=== PATIENT | female | born 1995 | race Caucasian/White ===

== ENCOUNTER 2020-08-02 12:20 | Outpatient (REF) | payer OTHER, SELFPAY | END 2020-08-02 12:21 | disposition home or self-care (01) | LOC: HO.LAB 12:20 | PROVIDERS: Visit Provider Internal Medicine | DX: Z20.828 Contact with and (suspected) exposure to other viral communicable diseases (principal) | CPT/HCPCS: 36415; C9803; U0003 ==

== ENCOUNTER 2020-11-11 15:12 | Emergency (ER) | payer OTHER, SELFPAY ==
[2020-11-11 15:42] VITALS: BP 144/84; PULSE 115; RESP 22; TEMP 37.8; O2SAT 96; BMI 31.8
--- NOTE | 2020-11-11 16:14 | ED_ITS ---
HPI - URI/Sore Throat General Chief Complaint: Upper Respiratory Symptoms Stated Complaint: covid symptoms Time Seen by Provider: 11/11/20 16:14 Source: patient Mode of arrival: ambulatory Limitations: no limitations History of Present Illness HPI Narrative: Patient been having upper respiratory symptoms for last 3 days nasal congestion cough chills history of asthma also complaining of lower abdominal pain no urinary complaint patient checked for was negative MD elicited complaint: cough and sore throat Severity: mild Related Data Previous Rx's Medication Instructions Recorded albuterol sulfate 2 puff INHALATION Q6H PRN #8.5 g 11/11/20 amoxicillin-pot clavulanate 1 tab PO BID #20 tab 11/11/20 [Augmentin] Allergies Allergy/AdvReac Type Severity Reaction Status Date / Time cat dander [CAT] Allergy Mild HIVES Unverified 04/15/20 18:51 SEAFOOD Allergy Mild HIVES Uncoded 04/15/20 18:51 Review of Systems Review of Systems: Constitutional : No Weight loss, No Fever, No Chills ENT/Mouth : + sore throat, + Rhinorrhea Eyes: No Eye Pain, No Swelling Cardiovascular : No Chest Pain, no palpitations Respiratory : +Cough, No Sputum, no shortness of breath Gastrointestinal : no Nausea, No Vomiting, No Diarrhea,+abdominal Pain, no black stools Genitourinary : No Dysuria, No Urinary Frequency Musculoskeletal : No joint pain, No Myalgias, No Joint Swelling Skin : No Skin Lesions, No rash Neuro : No Weakness, No Numbness, No Dizziness, No Headache Psych : No Anxiety/Panic, No Depression Heme/Lymph: No Bruising, No Lymphadenopathy Endocrine : No Polyuria, No Polydipsia All other systems reviewed and are negative [facility] Social History Social History Advance Directives: No Advance Directives Information Provided: No Physical Exam Vital Signs: Vital Signs: Last Vital Signs Temp 100.0 F 11/11/20 15:42 Pulse 104 H 11/11/20 16:47 Resp 20 11/11/20 16:47 BP 139/85 11/11/20 16:47 Pulse Ox 97 11/11/20 16:47 Body Mass Index 31.8 Appearance: Alert. Oriented X3. No acute distress. Eyes: Pupils equal, round and reactive to light. ENT: Pharynx normal. Neck: Normal inspection. Neck supple. CVS: Normal heart rate and rhythm. Pulses normal. Respiratory: No respiratory distress. Breath sounds normal. Abdomen: Soft and mild tenderness suprapubic area no rebound tenderness or guarding Bowel sounds are present, no mass palpable, no CVA tenderness Skin: Skin warm and dry. Normal skin color. Normal skin turgor. Extremities: No lower extremity edema. Neuro: Oriented X 3. No motor deficit. No sensory deficit. MDM - URI/Sore Throat Lab Data Attestation: I reviewed the patient's lab results. Labs: Lab Results 11/11/20 11/11/20 11/11/20 Range/Units 18:07 19:26 19:26 Urine Color YELLOW Urine Appearance CLEAR Urine pH 7.0 (5.0-8.0) Ur Specific [place] 1.015 (1.005-1.025) Urine Protein TRACE (NEG-TRACE) MG/DL Urine Glucose (UA) NEG (NEG) MG/DL Urine Ketones 5 (NEG) MG/DL Urine Blood NEG (NEG) Urine Nitrite NEG (NEG) Ur Leukocyte Esterase TRACE H (NEG) Urine RBC 0 (0) /HPF Urine WBC 0-2 (0-4) /HPF Ur Squamous Epith Cells 2+ /LPF Urine Bacteria 1+ /LPF Urine Test NEGATIVE (NEGATIVE) Coronavirus (PCR) NEGATIVE (Negative) Influenza Type A (PCR) NEGATIVE (Negative) Influenza Type B (PCR) NEGATIVE (Negative) RSV RNA Qual (PCR) NEGATIVE (Negative) Discharge Plan Discharge Clinical Impression: Acute rhinosinusitis Patient Disposition: Home, Self-Care Instructions: Rhinosinusitis (ED) Additional Instructions: Take antibiotic as advised follow-up with PCP Prescriptions: New amoxicillin-pot clavulanate [Augmentin] 875-125 mg tablet 1 tab PO BID Qty: 20 RF: 0 albuterol sulfate 90 mcg/actuation HFA aerosol inhaler 2 puff inhalation Q6H PRN (Reason: shortness of breath or wheezing) Qty: 8.5 RF: 0 Interventions: ED Discharge Assessment Last Done: 11/11/20 20:02 Discharge Date/Time: 11/11/20 19:17
[2020-11-11 16:47] VITALS: BP 139/85; PULSE 104; RESP 20; O2SAT 97
--- NOTE | 2020-11-11 16:49 | PC.NURSE ---
ambulatory to emc, vs reassessed, pt also c/o 4-12/06 RT LOWER ABDOMEN
[2020-11-11 18:56] LABS: Influenza A PCR NEGATIVE (Negative); Influenza B PCR NEGATIVE (Negative); Resp Syncy Virus RNA Qual PCR NEGATIVE (Negative); SARS COV2 PCR INHOUSE NEGATIVE (Negative)
[2020-11-11] MEDS: Amoxicillin/Potassium Clav 875 MG TABLET PO (19:24)
[2020-11-11 19:52] LABS: Glucose Urine UA NEG (NEG); Leukocyte Esterase Urine TRACE (NEG); Nitrite Urine NEG (NEG); Specific Gravity - Urine 1.015 (1.005-1.025); UACC Culture Trigger YES; Urine Blood NEG (NEG); Urine Ketones 5 MG/DL (NEG); Urine Protein TRACE MG/DL (NEG-TRACE)
[2020-11-11 19:53] LABS: Appearance Urine CLEAR; Color Urine YELLOW
[2020-11-11 19:55] LABS: UPreg QC Valid YES; Urine Pregnancy NEGATIVE (NEGATIVE)
[2020-11-11 20:01] LABS: Bacteria Urine 1+ /LPF; RBC Urine 0 /HPF (0); Squamous Epithelial Cell Urine 2+ /LPF; WBC Urine 0-2 /HPF (0-4)
== END 2020-11-11 19:17 | disposition home or self-care (01) ==
PROVIDERS: Emergency Provider Internal Medicine
DX: J01.90 Acute sinusitis, unspecified (principal); R05 Cough; Z20.822 Contact with and (suspected) exposure to COVID-19; Z79.899 Other long term (current) drug therapy
CPT/HCPCS: 0241U; 36415; 81001; 81003; 81025; 87086; 99283

== ENCOUNTER 2021-09-21 09:12 | Emergency (ER) | payer OTHER, SELFPAY ==
--- NOTE | ~2021-09-21 | US_ITS ---
EXAMINATION: US PELVIS CLINICAL INFORMATION: Abnormal vaginal bleeding. COMPARISON: None. TECHNIQUE: Ultrasound of the pelvis is performed using both transabdominal and transvaginal transducers along with Doppler. Transvaginal imaging is performed due to inadequate visualization transabdominally. FINDINGS: Uterus: The uterus is anteverted, anteflexed and measures 9.1 x 4.9 x 5.7 cm. The double wall endometrial thickness is 1.0 cm. The uterus is smooth in contour and has normal myometrial echogenicity. No visible fibroid. There are small nabothian cysts in the cervix. Adnexa: Both ovaries are visualized. There is normal color flow to the adnexa. There is no ovarian torsion. There is no pelvic ascites or fluid collection. Right ovary measures 4.9 x 2.2 x 2.06 cm and volume 11.3 mL. There are small follicular cysts seen. Left ovary measures 4.7 x 1.7 x 3.0 cm and volume 12.1 mL. There are several anechoic cysts in a string of brigette fashion appearance. There is a small amount of free fluid in the cul-de-sac. US/US pelvic and transvaginal IMPRESSION: Small Nabothian cysts. The uterus is unremarkable. Mild thickening of the endometrium measuring 1.0 cm but no focal lesion seen. Bilateral ovarian simple follicular cysts. There is a small amount of free fluid in the cul-de-sac.
[2021-09-21 09:29] VITALS: BP 146/84; PULSE 100; RESP 18; TEMP 36.7; O2SAT 96; BMI 32.8
--- NOTE | 2021-09-21 10:47 | ED_ITS ---
HPI - Female Genitourinary General Chief complaint: Vaginal Bleeding Stated complaint: Vaginal bleeding Time Seen by Provider: 09/21/21 10:29 Source: patient Mode of arrival: ambulatory Limitations: no limitations History of Present Illness HPI Narrative: Patient is a 26-year-old female G4 T3 L3, with no significant past medical history, who presents to the emergency department for evaluation of vaginal ble eding. She reports her last menstrual period was 07/01/2021. In July 2021 she took an at-home test which was positive, although she states the line was very faded. Therefore she took another test 09/04/2021 which was negative. She reports that 1.5 weeks ago she developed lower abdomina l/suprapubic pain and cramping and began having vaginal bleeding that is dark in color, odorous, with large clots. She states that she has been changing her tampon hourly, sizes Super, and tampon is completely saturated. In addition, she has been experiencing right lower back pain associated with this. She denies fevers, chills, nausea, vomiting constipation, diarrhea, dysuria, urinary frequency/urgency/hesitancy, abnormal vaginal discharge preceding vaginal bleeding, concern for sexually transmitted infection, does have a history of prior sexually transmitted infection. She is not taking any form of contraception. The date of her last Pap smear is unknown. MD elicited complaint: vaginal bleeding Pertinent past history: prior miscarriages Onset (ago): week(s) Quality of pain: cramping Vaginal bleeding: heavy, dark red and clots Associated symptoms: abdominal pain and back pain (right sided) Possible : at home test positive and at home test negative Date of Last Menstrual Period: 07/01/21 Related Data : 4 Para: 3 Total number of abortions (spontaneous and elective): 1 Previous Rx's Medication Instructions Recorded albuterol sulfate 90 mcg/actuation 2 puff INHALATION Q6H PRN #8.5 g 11/11/20 aerosol inhaler amoxicillin 875 mg-potassium 1 tab PO BID #20 tab 11/11/20 clavulanate 125 mg tablet (Augmentin) doxycycline monohydrate 100 mg 100 mg PO BID 14 Days #28 cap 09/21/21 capsule metronidazole 500 mg tablet 500 mg PO BID 14 Days #28 tab 09/21/21 Allergies Allergy/AdvReac Type Severity Reaction Status Date / Time cat dander [CAT] Allergy Mild HIVES Verified 09/21/21 09:32 SEAFOOD Allergy Mild HIVES Uncoded 04/15/20 18:51 Review of Systems Review of Systems: Constitutional : No Fever, No Chills ENT/Mouth : No sore throat, No Rhinorrhea Eyes: No Eye Pain, No Redness Cardiovascular : No Chest Pain, No SOB Respiratory : No Cough, No Sputum, No Wheezing Gastrointestinal : No Nausea, No Vomiting, No Diarrhea, positive abdominal pain, Genitourinary : positive irregular bleeding, No Dysuria, No Urinary Frequency, No pelvic pain Musculoskeletal : No Myalgias Skin : No rash Neuro : No Weakness, No Headache Psych : No Anxiety/Panic, No Depression Heme/Lymph: No bruising, No Lymphadenopathy Endocrine : No Polyuria, No Polydipsia All other systems reviewed and are negative [facility] Past Medical History Attestation statement: The following information was validated with the patient. Source: old records reviewed Medical History Asthma Miscarriage : 4 Para: 3 Total number of abortions (spontaneous and elective): 1 Date of Last Menstrual Period: 07/01/21 Social History Social History Advance Directives: No Advance Directives Information Provided: No Patient : No Physical Exam Vital Signs: Vital Signs: Last Vital Signs Temp 98.5 F 09/21/21 14:36 Pulse 81 09/21/21 14:36 Resp 16 09/21/21 14:36 BP 136/80 09/21/21 14:36 Pulse Ox 98 09/21/21 14:36 BMI result Body Mass Index 32.8 Vital signs have been reviewed and appeared to be correct. Blood pressure is elevated 146/84. Heart rate normal.? Respiration rate normal. Temperature normal.? Oxygen saturation normal. Appearance: Alert.?Oriented to person, place and time. No acute distress.?Normal affect. Eyes: Pupils equal, round and reactive to light.? ENT: Pharynx normal.?? Neck: Normal inspection.? Neck supple.?? CVS: Heart sounds normal. Normal heart rate and rhythm.? Pulses normal.?? Respiratory: No respiratory distress.? Lung sounds clear to auscultation bilaterally?? Abdomen: Soft and non-tender. Normoactive bowel sounds. No pulsatile mass.? Genitourinary:? Supervised by HALIMA Malave. Normal external appearance of urethra. No lesions/lacerations or discharge or tenderness noted.? No Bartholin cyst noted. Speculum exam: normal appearance/palpation of vagina normal. No vaginal erythema. No foreign bodies noted. No vaginal laceration/lesions. + active vaginal bleeding, no blood clots.? No vaginal mass noted.? No vaginal swelling noted.? No vaginal tenderness noted.? Normal appearance of cervix, cloudy white discharge at cervical os. Cervical os is closed.?Positive cervical motion tnederness. Uterine tenderness. Negative chandelier sign. Bladder normal to palpation. Normal adnexa. Normal rectovaginal exam. Back:? No CVA tenderness.? Full range of motion noted.? Skin: Skin warm and dry.? Normal skin color.? Normal skin turgor.?? Extremities: No lower extremity edema.? Neuro: Moves all extremities spontaneously. Sensation intact bilaterally. CN II- XII intact. No focal neuro deficits. Ambulates with normal steady gait. Course Course Course Narrative: Patient is a 26-year-old female being evaluated for abnormal vaginal bleeding. Will obtain urinalysis to exclude infection, microscopic hematuria. Will obtain hCG to evaluate for . CBC to evaluate for anemia. Transvaginal/ pelvic ultrasound. Disposition pending results. Specimen to be obtained for chlamydia and gonorrhea testing. Reevaluation(s) Reevaluation #1: Urine test negative, hcg quant negative. CBC indicates a very mild anemia with hemoglobin 11.5, hematocrit is normal at 38.9, otherwise unremarkable. BMP unremarkable. Urinalysis with hematuria, no concern for infection. There is concern for possible pelvic inflammatory disease given cervical motion tenderness, will plan to treat with ceftriaxone 500 mg IV, doxycycline 100 mg p.o. twice daily for 14 days, metronidazole 500 mg p.o. twice daily for 14 days. Ultrasound reveals small nabothian cysts, mild thickening of the endometrium measuring 1.0 cm but no focal lesions, and a small amount of free fluid in the cul-de-sac. Not consistent with ruptured ovarian cyst, ovarian torsion, foreign body, or trauma based on history. At this time will plan to discharge patient home with outpatient follow-up with medical assisting instructor, all questions were answered and patient is agreeable with plan of care. We discussed reasons to return to the emergency department. Time: 14:33 MDM - Female Genitourinary Medical Records Attestation: I reviewed the patient's medical records. Lab Data Attestation: I reviewed the patient's lab results. Result diagrams: 09/21/21 12:00 09/21/21 12:04 Labs: Lab Results 09/21/21 09/21/21 09/21/21 Range/Units 11:04 11:05 11:05 WBC (4.8-10.8) X10*3/uL RBC (4.20-5.50) X10*6/uL Hgb (12.0-16.0) g/dl Hct (37.0-47.0) % MCV (80.0-98.0) fL MCH (27.0-33.0) pg MCHC (31.0-35.0) g/dl RDW (11.0-16.0) % Plt Count (160-400) X10*3/uL MPV (9.4-12.3) fL Immature Gran % (Auto) (0.0-0.4) % Neut % (Auto) (45-73) % Lymph % (Auto) (20-40) % [place] % (Auto) (2-11) % Eos % (Auto) (0-4) % Baso % (Auto) (0-2) % Lymph # (Auto) (1.2-4.9) X10*3/uL [place] # (Auto) (0.1-1.2) X10*3/uL Eos # (Auto) (0.0-0.4) X10*3/uL Baso # (Auto) (0.0-0.2) X10*3/uL Abs Immat Gran (auto) (0.00-0.03) X10*3/uL Absolute Neuts (auto) (2.0-8.3) x10*3/uL Absolute Nucleated RBC (0.0-0.012) X10*3/uL Nucleated RBC % (auto) (0.0-0.2) /100WBC Sodium (135-145) mmol/L Potassium (3.3-5.1) mmol/L Chloride (96-108) mmol/L Carbon Dioxide (22-29) mmol/L Anion Gap (12-20) BUN (9-16) mg/dL Creatinine (0.5-1.4) mg/dL Estim Creat Clear Calc Estimated GFR Random Glucose (60-115) mg/dL Calcium (8.4-10.2) mg/dL Beta HCG, Quant mIU/mL Urine Color PINK Urine Appearance CLOUDY Urine pH 6.0 (5.0-8.0) Ur Specific [place] 1.025 (1.005-1.025) Urine Protein 1+ H (NEG-TRACE) MG/DL Urine Glucose (UA) NEG (NEG) MG/DL Urine Ketones 5 (NEG) MG/DL Urine Blood 3+ H (NEG) Urine Nitrite NEG (NEG) Ur Leukocyte Esterase NEG (NEG) Urine RBC TNTC H (0) /HPF Urine WBC 0-2 (0-4) /HPF Ur Squamous Epith Cells 1+ /LPF Calcium Oxalate Crystal 2+ /LPF Urine Bacteria NONE /LPF Urine Mucus 1+ /LPF Urine Test NEGATIVE (NEGATIVE) Chlam trachomat DNA PCR NOT DETECTED (Not Detect.) N.gonorrhoeae DNA (PCR) NOT DETECTED (Not Detect.) 09/21/21 09/21/21 Range/Units 12:00 12:04 WBC 7.8 (4.8-10.8) X10*3/uL RBC 5.38 (4.20-5.50) X10*6/uL Hgb 11.5 L (12.0-16.0) g/dl Hct 38.9 (37.0-47.0) % MCV 72.3 L (80.0-98.0) fL MCH 21.4 L (27.0-33.0) pg MCHC 29.6 L (31.0-35.0) g/dl RDW 18.3 H (11.0-16.0) % Plt Count 278 (160-400) X10*3/uL MPV 11.7 (9.4-12.3) fL Immature Gran % (Auto) 0.3 (0.0-0.4) % Neut % (Auto) 59.8 (45-73) % Lymph % (Auto) 29.0 (20-40) % [place] % (Auto) 6.3 (2-11) % Eos % (Auto) 4.2 H (0-4) % Baso % (Auto) 0.4 (0-2) % Lymph # (Auto) 2.3 (1.2-4.9) X10*3/uL [place] # (Auto) 0.5 (0.1-1.2) X10*3/uL Eos # (Auto) 0.3 (0.0-0.4) X10*3/uL Baso # (Auto) 0.0 (0.0-0.2) X10*3/uL Abs Immat Gran (auto) 0.02 (0.00-0.03) X10*3/uL Absolute Neuts (auto) 4.7 (2.0-8.3) x10*3/uL Absolute Nucleated RBC 0.000 (0.0-0.012) X10*3/uL Nucleated RBC % (auto) 0.0 (0.0-0.2) /100WBC Sodium 140 (135-145) mmol/L Potassium 4.2 (3.3-5.1) mmol/L Chloride 106 (96-108) mmol/L Carbon Dioxide 27 (22-29) mmol/L Anion Gap 11 L (12-20) BUN 8 L (9-16) mg/dL Creatinine 0.75 (0.5-1.4) mg/dL Estim Creat Clear Calc 116.6 Estimated GFR > 60 Random Glucose 88 (60-115) mg/dL Calcium 8.8 (8.4-10.2) mg/dL Beta HCG, Quant < 2 mIU/mL Urine Color Urine Appearance Urine pH (5.0-8.0) Ur Specific [place] (1.005-1.025) Urine Protein (NEG-TRACE) MG/DL Urine Glucose (UA) (NEG) MG/DL Urine Ketones (NEG) MG/DL Urine Blood (NEG) Urine Nitrite (NEG) Ur Leukocyte Esterase (NEG) Urine RBC (0) /HPF Urine WBC (0-4) /HPF Ur Squamous Epith Cells /LPF Calcium Oxalate Crystal /LPF Urine Bacteria /LPF Urine Mucus /LPF Urine Test (NEGATIVE) Chlam trachomat DNA PCR (Not Detect.) N.gonorrhoeae DNA (PCR) (Not Detect.) Imaging Data pelvic US: Radiologist's impression: IMPRESSION: Small Nabothian cysts. The uterus is unremarkable. ? Mild thickening of the endometrium measuring 1.0 cm but no focal lesion seen. ? Bilateral ovarian simple follicular cysts. ? There is a small amount of free fluid in the cul-de-sac. Discharge Plan Discharge Clinical Impression: Abnormal vaginal bleeding, Pelvic inflammatory disease Patient Disposition: Home, Self-Care Instructions: Pelvic Inflammatory Disease (ED), Dysfunctional Uterine Bleeding (ED) Additional Instructions: It is possible that you may have pelvic inflammatory disease, therefore you are being treated with doxycycline twice a day for 14 days and metronidazole twice a day for 14 days. Be sure not to consume any alcohol while taking these antibiotics. ultrasound reveals some mild thickening of your endometrial and to the lining of the uterus, this may also be a cause for your bleeding. Please contact medical assisting instructor to schedule a follow-up appointment in 1 week. You may return to the emergency department with any new or worsening symptoms or concerns. Additionally if you develop fevers, shaking chills, nausea, vomiting, severe worsening abdominal pain, abnormal vaginal discharge please return back for further evaluation. Prescriptions: New metronidazole 500 mg tablet 500 mg PO BID 14 Days Qty: 28 0RF doxycycline monohydrate 100 mg capsule 100 mg PO BID 14 Days Qty: 28 0RF No Action amoxicillin-pot clavulanate [Augmentin] 875-125 mg tablet 1 tab PO BID Qty: 20 0RF albuterol sulfate 90 mcg/actuation HFA aerosol inhaler 2 puff inhalation Q6H PRN (Reason: shortness of breath or wheezing) Qty: 8.5 0RF Referrals: Anastacio Ley MD [Physician] - 2 days Stand Alone Forms: Work/School Release
[2021-09-21 11:16] LABS: Appearance Urine CLOUDY; Glucose Urine UA NEG (NEG); Leukocyte Esterase Urine NEG (NEG); Nitrite Urine NEG (NEG); Specific Gravity - Urine 1.025 (1.005-1.025); UACC Culture Trigger NO; Urine Blood 3+ (NEG); Urine Ketones 5 MG/DL (NEG); Urine Protein 1+ MG/DL (NEG-TRACE)
[2021-09-21 11:18] LABS: UPreg QC Valid YES; Urine Pregnancy NEGATIVE (NEGATIVE)
[2021-09-21 11:25] LABS: Color Urine PINK
[2021-09-21 11:28] LABS: Mucus Urine 1+ /LPF; RBC Urine TNTC /HPF (0); Squamous Epithelial Cell Urine 1+ /LPF; WBC Urine 0-2 /HPF (0-4)
[2021-09-21 11:29] LABS: Calcium Oxalate Crystals Urine 2+ /LPF
[2021-09-21 12:08] LABS: MANUAL DIFF FLAG NO
[2021-09-21 12:13] LABS: Basophils Percent Auto 0.4 % (0-2); Eosinophils Absolute Auto 0.3 X10*3/uL (0.0-0.4); Eosinophils Percent Auto 4.2 % (0-4); Hematocrit 38.9 % (37.0-47.0); Hemoglobin 11.5 g/dl (12.0-16.0); Imm Gran Abs Auto 0.02 X10*3/uL (0.00-0.03); Imm Gran Pct Auto 0.3 % (0.0-0.4); Lymphocytes Absolute Auto 2.3 X10*3/uL (1.2-4.9); Mean Corpuscular HGB Conc 29.6 g/dl (31.0-35.0); Mean Corpuscular Hemoglobin 21.4 pg (27.0-33.0); Mean Corpuscular Volume 72.3 fL (80.0-98.0); Mean Platelet Volume 11.7 fL (9.4-12.3); Monocytes Absolute Auto 0.5 X10*3/uL (0.1-1.2); Monocytes Percent Auto 6.3 % (2-11); Neutrophils Absolute Auto 4.7 x10*3/uL (2.0-8.3); Neutrophils Percent Auto 59.8 % (45-73); Platelet Count 278 X10*3/uL (160-400); Red Blood Count 5.38 X10*6/uL (4.20-5.50); Red Cell Distribution Width 18.3 % (11.0-16.0); White Blood Count 7.8 X10*3/uL (4.8-10.8)
[2021-09-21 12:23] LABS: Anion Gap 11 (12-20); Blood Urea Nitrogen 8 mg/dL (9-16); Calcium 8.8 mg/dL (8.4-10.2); Carbon Dioxide 27 mmol/L (22-29); Chloride 106 mmol/L (96-108); Creatinine Clr Calc Pharmacy 116.6; Estimated Glomerular Filt Rate > 60; Glucose Random 88 mg/dL (60-115); Potassium 4.2 mmol/L (3.3-5.1); Sodium 140 mmol/L (135-145)
[2021-09-21 12:31] LABS: HCG Quantitative < 2 mIU/mL
[2021-09-21] MEDS: cefTRIAXone sodium 500 MG, Lidocaine HCl 1 % MPF 1 ML IM (13:16)
[2021-09-21 13:48] LABS: CT PCR NOT DETECTED (Not Detect.); NG PCR NOT DETECTED (Not Detect.)
[2021-09-21 14:36] VITALS: BP 136/80; PULSE 81; RESP 16; TEMP 36.9; O2SAT 98
== END 2021-09-21 15:05 | disposition home or self-care (01) ==
PROVIDERS: Nurse Practitioner Family; Emergency Provider Emergency Medicine
DX: N93.9 Abnormal uterine and vaginal bleeding, unspecified (principal); N73.9 Female pelvic inflammatory disease, unspecified; N88.8 Other specified noninflammatory disorders of cervix uteri; R10.30 Lower abdominal pain, unspecified
CPT/HCPCS: 36415; 76830; 76856; 80048; 81001; 81025; 84702; 85025; 87491; 87591; 96372; 99283; 99284; J0696

== ENCOUNTER → 2021-10-11 14:17 | Outpatient (BNVA) | payer OTHER, SELFPAY | PROVIDERS: Visit Provider Obstetrics & Gynecology | DX: N93.9 Abnormal uterine and vaginal bleeding, unspecified (principal) | CPT/HCPCS: 81025; 99212 ==

== ENCOUNTER 2022-08-10 08:33 | Emergency (ER) | payer OTHER, SELFPAY ==
[2022-08-10 08:42] VITALS: BP 153/103; PULSE 80; RESP 18; TEMP 36.6; O2SAT 97; BMI 33.6
--- NOTE | 2022-08-10 08:53 | ED.FEMALEGU ---
HPI - Female Genitourinary General Chief complaint: Urogenital-Female Stated complaint: chest pain sob abd pain Time Seen by Provider: 08/10/22 08:52 Source: patient Mode of arrival: ambulatory Limitations: no limitations History of Present Illness HPI Narrative: Patient is a 27 year old assigned female at with a history of asthma presenting to the emergency department today with feeling generally unwell and having pain with urination and vaginal discharge. Patient states that she just got out of longterm and is out of her albuterol inhaler and neb solution and would like more of that. Patient states that she is having pain with urination and white vaginal discharge. Patient states that she has been around a lot of people with the flu. Patient denies any dizziness, lightheadedness, abdominal pain, nausea, vomiting, fever, chills, blurry vision, double vision, loss of vision, chest pain, difficulty breathing, shortness of breath, back pain, night sweats, pain with urination, increased urinary frequency, increased urinary urgency, blood in her urine or stool, syncope or a near syncopal episode, recent trauma or falls, bowel incontinence, bladder incontinence, bowel retention, bladder retention, or any other complaints at this time. MD elicited complaint: dysuria Severity: mild Severity scale (1-10): 1 Vaginal discharge: white Vaginal bleeding: scant Urinary symptoms: Dysuria Exacerbating factors: none Relieving factors: none Associated symptoms: denies other symptoms Treatment prior to arrival: none Sexual activity: Yes Patient : No Related Data Previous Rx's Medication Instructions Recorded albuterol sulfate 90 mcg/actuation 2 puff inhalation Q6H PRN 11/11/20 aerosol inhaler shortness of breath or wheezing #8.5 grams amoxicillin 875 mg-potassium 1 tab PO BID #20 tabs 11/11/20 clavulanate 125 mg tablet (Augmentin) doxycycline monohydrate 100 mg 100 mg PO BID 14 days #28 caps 09/21/21 capsule metronidazole 500 mg tablet 500 mg PO BID 14 days #28 tabs 09/21/21 L norgest/E estradiol-E estrad 1 tab PO DAILY 84 days #84 ea 01/02/22 0.15 mg-30 mcg (84)/10 mcg(7) tabs,3mos (Seasonique) albuterol sulfate 2.5 mg/0.5 mL 5 mg inhalation Q6H #30 ea 08/10/22 solution for nebulization albuterol sulfate 90 mcg/actuation 1 inh inhalation QID #6.7 grams 08/10/22 aerosol inhaler fluconazole 150 mg tablet 150 mg PO Q3D 2 doses #2 tabs 08/10/22 (Diflucan) metronidazole 500 mg tablet 500 mg PO BID 7 days #14 tabs 08/10/22 nitrofurantoin 100 mg PO BID 7 days #14 caps 08/10/22 monohydrate/macrocrystals 100 mg capsule (Macrobid) Allergies Allergy/AdvReac Type Severity Reaction Status Date / Time cat dander [CAT] Allergy Mild HIVES Verified 10/11/21 14:33 SEAFOOD Allergy Mild HIVES Uncoded 04/15/20 18:51 Review of Systems Constitutional: Constitutional: Reports no additional constitutional complaints, Denies chills, Denies fever(s) and Denies night sweats Eyes: Eyes: Reports no additional eye complaints, Denies blurry vision, Denies change in vision, Denies diplopia, Denies eye discharge, Denies loss of vision and Denies eye pain ENT: Denies dizziness Cardiovascular: Cardiovascular: Reports no additional cardiovascular complaints, Denies chest pain, Denies lightheadedness, Denies Loss of Consciousness and Denies dyspnea Respiratory: Respiratory: Reports no additional respiratory complaints and Denies dyspnea Gastrointestinal: Gastrointestinal: Reports no additional gastrointestinal complaints, Denies abdominal pain, Denies melena, Denies hematochezia, Denies change in bowel habits and Denies change in stool character Genitourinary: Genitourinary: Denies hematuria, Denies urinary frequency, Reports dysuria, Denies urinary incontinence, Denies urinary hesitancy, Denies urinary urgency and Reports vaginal discharge Musculoskeletal: Musculoskeletal: Reports no additional musculoskeletal complaints, Denies numbness and Denies tingling Neurologic: Denies dizziness, Denies loss of vision, Denies numbness and Denies tingling Psychiatric: Psychiatric: Reports no additional psychiatric complaints Endocrine: Endocrine: Reports no additional endocrine complaints Hematologic/Lymphatic: Hematologic/Lymphatic: Reports no additional hematologic/lymphatic complaints Allergic/Immunologic: Allergic/Immunologic: Reports no additional allergic/immunologic complaints PMFSH Past Medical History Attestation statement: The following information was validated with the patient. Source: old records reviewed and nursing notes reviewed Medical History Asthma Miscarriage Social History Social History Alcohol intake: current Alcohol intake frequency: holidays/special occasions only Substance Use Type: Marijuana Advance Directives: No Gender identity: Female Physical Exam Vital Signs: Vital Signs: Last Vital Signs Temp 97.8 F 08/10/22 08:42 Pulse 80 08/10/22 09:24 Resp 16 08/10/22 09:24 BP 154/101 H 08/10/22 09:24 Pulse Ox 99 08/10/22 09:24 O2 Del Method 08/10/22 09:24 BMI result Body Mass Index 33.6 Const: General: cooperative, no acute distress, alert and awake Nutritional Appearance: well nourished Orientation/consciousness: patient oriented x3 Limitations: no limitations HEENT: Head: Yes normal to inspection and Yes atraumatic Ears: hearing grossly normal bilaterally and external ears normal General nose exam: Normal external nose present, no nasal discharge noted and no epistaxis Face and sinus: Yes normal facial exam, No abrasion and No laceration Mouth: Normal oral and palatal mucosa present, no drooling and no muffled voice Eyes: General: appearance normal, both eyes and all related structures Periorbital: periorbital findings normal Eyelids: Yes eyelids normal Conjunctivae: conjunctivae normal Pupils: Equal, round and reactive pupils present EOM: EOMs intact bilaterally Neck: Neck: Yes normal visual inspection, Yes full ROM and Yes no lymphadenopathy Chest: Chest palpation & inspection: normal inspection of the chest Resp: Effort & Inspection: normal respiratory effort and able to speak in complete sentences Auscultation: clear to auscultation bilaterally Cardio: Rate: regular rate Rhythm: regular rhythm GI: Inspection: Yes normal to inspection Palpation (GI): Soft to palpation, not firm, nontender, no guarding and not rigid Neuro: General: patient oriented x3 and moves all extremities Cranial nerves: Yes Equal, round and reactive pupils present Cognition (Neuro): normal cognition Motor exam (neuro): 5/5 motor strength present throughout Sensory Exam: Normal double simultaneous stimulation for sensation Coordination: [id number] test normal Extrem: General: Yes normal to inspection, Yes full ROM and Yes capillary refill normal Psych: Appearance: grossly normal Mental Status: mental status grossly normal Affect: normal affect Attitude: cooperative Thought process: Normal thought process present Thought content: Normal thought content present Insight: Good insight present (Psych) Medical Decision Making Medical Decision Making [facility] Narrative: Patient is a 27 year old assigned female at with a history of asthma presenting to the emergency department today requesting medication refills, complaining of painful urination, and feeling generally unwell. Patient's physical exam was unremarkable. Patient's urine showed trace leukocyte esterase and moderate blood, given patient's symptoms will cover for UTI. Patient's influenza test was positive. I explained my physical exam findings as well as all test results to the patient. I answered all questions asked by the patient. I stressed the importance of the patient taking her medication as prescribed. I stressed the importance of the patient following up with her primary care provider. I stressed the importance of the patient returning to the emergency department immediately if her symptoms were to worsen or if she were to develop any dizziness, shortness of breath, difficulty breathing, chest pain, blurry vision, loss of vision, nausea, vomiting, abdominal pain, fever, chills, back pain, or any other complaints. Patient verbalized agreement and understanding with this treatment plan and discharge. Differential Diagnosis Differential Diagnoses: The differential diagnosis associated with the presentation includes Influenza, UTI Lab Data [facility] Lab Attestation statement: I reviewed the patient's lab results. Labs: Lab Results 08/10/22 08/10/22 08/10/22 Range/Units 08:50 08:50 09:05 Urine Color Yellow Urine Appearance Hazy Urine pH 7.0 (5.0-9.0) Ur Specific [place] 1.020 (1.005-1.025) Urine Protein Trace (Neg-Trace) mg/dL Urine Glucose (UA) Negative (Negative) mg/dL Urine Ketones Negative (Negative) mg/dL Urine Blood Moderate (2+) H (Negative) Urine Nitrite Negative (Negative) Ur Leukocyte Esterase Trace H (Negative) Urine RBC 11-20 H (0-2) /HPF Urine WBC 0-5 (0-5) /HPF Ur Squamous Epith Cells 11-20 (0-2) /HPF Urine Bacteria None Seen (None Seen) Hyaline Casts 0-2 (0-2) /LPF Urine Test NEGATIVE (NEGATIVE) Influenza Type A (PCR) POSITIVE A (Negative) Influenza Type B (PCR) NEGATIVE (Negative) RSV RNA Qual (PCR) NEGATIVE (Negative) SARS-CoV-2 RNA (RT-PCR) NEGATIVE (Negative) Discharge Plan Discharge Clinical Impression: Influenza, Dysuria Patient Disposition: Home, Self-Care Instructions: Influenza (ED) Additional Instructions: Follow up with your primary care provider. Return to the emergency department immediately if your symptoms worsen or if you develop any dizziness, shortness of breath, difficulty breathing, chest pain, blurry vision, loss of vision, nausea, vomiting, abdominal pain, fever, chills, back pain, or any other complaints. Prescriptions: New fluconazole [Diflucan] 150 mg tablet 150 mg PO Q3D Qty: 2 0RF metronidazole 500 mg tablet 500 mg PO BID 7 Days Qty: 14 0RF nitrofurantoin monohyd/m-cryst [Macrobid] 100 mg capsule 100 mg PO BID 7 Days Qty: 14 0RF Rx Instructions: must administer with a meal/food albuterol sulfate 90 mcg/actuation HFA aerosol inhaler 1 inh inhalation QID Qty: 6.7 0RF albuterol sulfate 2.5 mg/0.5 mL solution for nebulization 5 mg inhalation Q6H Qty: 30 0RF No Action L norgest/e.estradiol-e.estrad [Seasonique] 0.15 mg-30 mcg (84)/10 mcg (7) tablets,dose pack,3 month 1 tab PO DAILY 84 Days Qty: 84 0RF amoxicillin-pot clavulanate [Augmentin] 875-125 mg tablet 1 tab PO BID Qty: 20 0RF albuterol sulfate 90 mcg/actuation HFA aerosol inhaler 2 puff inhalation Q6H PRN (Reason: shortness of breath or wheezing) Qty: 8.5 0RF metronidazole 500 mg tablet 500 mg PO BID 14 Days Qty: 28 0RF doxycycline monohydrate 100 mg capsule 100 mg PO BID 14 Days Qty: 28 0RF Referrals: [facility] [place] Group] [facility] [place]Provider Group] [facility]Provider Group] Stand Alone Forms: Work/School Release Print Language: Stateless
[2022-08-10 09:07] LABS: Appearance Urine Hazy; Color Urine Yellow; Glucose Urine UA Negative (Negative); Leukocyte Esterase Urine Trace (Negative); Nitrite Urine Negative (Negative); UMIC TRIGGER UACC YES; Urine Blood Moderate (2+) (Negative); Urine Ketones Negative (Negative); Urine Protein Trace mg/dL (Neg-Trace)
[2022-08-10 09:11] LABS: UPreg QC Valid YES; Urine Pregnancy NEGATIVE (NEGATIVE)
[2022-08-10 09:16] LABS: Bacteria Urine None Seen (None Seen); Hyaline Casts Urine 0-2 /LPF (0-2); WBC Urine 0-5 /HPF (0-5)
[2022-08-10 09:24] VITALS: BP 154/101; PULSE 80; RESP 16; O2SAT 99
[2022-08-10 09:48] LABS: Influenza A PCR POSITIVE (Negative); Influenza B PCR NEGATIVE (Negative); Resp Syncy Virus RNA Qual PCR NEGATIVE (Negative); SARS COV2 PCR INHOUSE NEGATIVE (Negative)
[2022-08-10 12:47] LABS: CT PCR NOT DETECTED (Not Detect.); NG PCR NOT DETECTED (Not Detect.)
== END 2022-08-10 12:15 | disposition home or self-care (01) ==
PROVIDERS: Physician Assistant Medical; Emergency Provider Student in an Organized Health Care Education/Training Program
DX: J11.1 Influenza due to unidentified influenza virus with other respiratory manifestations (principal); R30.0 Dysuria; J45.909 Unspecified asthma, uncomplicated; F12.90 Cannabis use, unspecified, uncomplicated; Z20.822 Contact with and (suspected) exposure to COVID-19
CPT/HCPCS: 0241U; 0353U; 81001; 81003; 81025; 99283; 99284

== ENCOUNTER 2023-02-26 13:51 | Emergency (ER) | payer OTHER, SELFPAY ==
--- NOTE | ~2023-02-26 | US_ITS ---
EXAMINATION: US OBSTETRICAL ULTRASOUND CLINICAL INFORMATION: Right lower quadrant abdominal pain COMPARISON: None available. LMP: 01/20/2023. Gestational age by maternal dates is 5 weeks 2 days. Estimated date of delivery by maternal dates is 10/27/2023. TECHNIQUE: Multiple sonographic transabdominal and endovaginal views the pelvis were obtained. Endovaginal images were needed to better assess the anatomy. FINDINGS: There is a small region of fluid seen within the endometrial cavity possibly representing an early gestational sac with a mean sac diameter 0.27 cm. There is no visible yolk sac, embryo/fetus, and cardiac activity at this point in time. There is no significant subchorionic hemorrhage or hematoma. ANGELA (estimated date of delivery): 4 weeks 5 days +/- 4 days. MATERNAL ADNEXA: The right maternal ovary measures 4.2 x 1.9 x 2.0 cm. 2.2 cm corpus luteum cyst The left maternal ovary measures 3.3 x 1.8 x 2.0 cm. There is no significant maternal adnexal mass. No maternal pelvic ascites. US/US OB pelvic and transvaginal IMPRESSION: 1. Tiny amount of fluid seen within the endometrial cavity may represent a very early gestational sac with a mean sac diameter of 0.27 cm. This would correspond with an estimated 4 week 5 day gestational age. This is too small to characterize further however and follow-up with serial quantitative beta hCG and/or pelvic ultrasound is needed recommended. 2. No maternal adnexal mass or pelvic ascites.
[2023-02-26 14:05] VITALS: BP 135/86; PULSE 73; RESP 18; TEMP 36.3; O2SAT 100; BMI 33.0
--- NOTE | 2023-02-26 14:29 | ED.GENADULT ---
HPI - General Adult General Chief complaint: General Medical Stated complaint: lower abd pain r hip pain Related Data Previous Rx's ?Medication ?Instructions ?Recorded albuterol sulfate 90 mcg/actuation 2 puff inhalation Q6H PRN 11/11/20 aerosol inhaler shortness of breath or wheezing #8.5 grams amoxicillin 875 mg-potassium 1 tab PO BID #20 tabs 11/11/20 clavulanate 125 mg tablet (Augmentin) doxycycline monohydrate 100 mg 100 mg PO BID 14 days #28 caps 09/21/21 capsule metronidazole 500 mg tablet 500 mg PO BID 14 days #28 tabs 09/21/21 L norgest/E estradiol-E estrad 1 tab PO DAILY 84 days #84 ea 01/02/22 0.15 mg-30 mcg (84)/10 mcg(7) tabs,3mos (Seasonique) albuterol sulfate 2.5 mg/0.5 mL 5 mg inhalation Q6H #30 ea 08/10/22 solution for nebulization albuterol sulfate 90 mcg/actuation 1 inh inhalation QID #6.7 grams 08/10/22 aerosol inhaler fluconazole 150 mg tablet 150 mg PO Q3D 2 doses #2 tabs 08/10/22 (Diflucan) metronidazole 500 mg tablet 500 mg PO BID 7 days #14 tabs 08/10/22 nitrofurantoin 100 mg PO BID 7 days #14 caps 08/10/22 monohydrate/macrocrystals 100 mg capsule (Macrobid) labetalol 200 mg tablet 200 mg PO BID #60 tabs 03/10/23 Allergies Allergy/AdvReac Type Severity Reaction Status Date / Time cat dander [CAT] Allergy Mild HIVES Verified 05/23/23 13:37 SEAFOOD Allergy Mild HIVES Uncoded 05/23/23 13:37 [facility] Past Medical History Medical History (Updated 01/31/24 @ 14:50 by JACKSON Carvalho) Well woman exam Abnormal uterine bleeding Miscarriage Asthma Social History Social History (System 05/23/23 @ 13:37 by Eunice Babin) Alcohol intake: current Alcohol intake frequency: holidays/special occasions only Substance Use Type: Marijuana Advance Directives: No Advance Directives Information Provided: Yes Gender identity: Female Physical Exam ED Vital Signs: Vital Signs - 24 hr 02/26/23 14:05 Temperature 97.3 F Pulse Rate 73 Respiratory Rate 18 Blood Pressure 135/86 Pulse Oximetry 100 Oxygen Delivery Method Room Air BMI result Body Mass Index 33.0 Course Course Course Narrative: This is an RME: Additional HPI, ROS, PE not included below will be deferred to primary provider. 27-year-old female presents with bilateral lower back pain with radiation and abdomen, denies trauma. Also reporting associated nausea, fatigue, malaise, chills. This has been going on for 3 days. No red flag symptoms of back pain. No urinary symptoms. Denies chest pain, shortness of breath, fevers. Plan labs. Medical Decision Making Lab Data 02/26/23 14:35 02/26/23 14:35 Labs: Lab Results 02/26/23 Range/Units 14:35 WBC 8.9 (4.8-10.8) X10*3/uL RBC 5.99 H (4.20-5.50) X10*6/uL Hgb 11.1 L (12.0-16.0) g/dl Hct 38.7 (37.0-47.0) % MCV 64.6 L (80.0-98.0) fL MCH 18.5 L (27.0-33.0) pg MCHC 28.7 L (31.0-35.0) g/dl RDW 21.7 H (11.0-16.0) % Plt Count 261 (160-400) X10*3/uL MPV Not Reportable Immature Gran % (Auto) 0.3 (0.0-0.4) % Neut % (Auto) 63.3 (45-73) % Lymph % (Auto) 28.3 (20-40) % [place] % (Auto) 6.1 (2-11) % Eos % (Auto) 1.6 (0-4) % Baso % (Auto) 0.4 (0-2) % Lymph # (Auto) 2.5 (1.2-4.9) X10*3/uL [place] # (Auto) 0.5 (0.1-1.2) X10*3/uL Eos # (Auto) 0.1 (0.0-0.4) X10*3/uL Baso # (Auto) 0.0 (0.0-0.2) X10*3/uL Abs Immat Gran (auto) 0.03 (0.00-0.03) X10*3/uL Absolute Neuts (auto) 5.6 (2.0-8.3) x10*3/uL Absolute Nucleated RBC 0.000 (0.0-0.012) X10*3/uL Nucleated RBC % (auto) 0.0 (0.0-0.2) /100WBC Smear Path Review SEE NOTE Sodium 137 (135-145) mmol/L Potassium 4.1 (3.3-5.1) mmol/L Chloride 107 (96-108) mmol/L Carbon Dioxide 22 (22-29) mmol/L Anion Gap 12 (12-20) BUN 11 (9-16) mg/dL Creatinine 0.78 (0.5-1.4) mg/dL Estim Creat Clear Calc 111.6 Estimated GFR > 60 Random Glucose 94 (60-115) mg/dL Calcium 9.0 (8.4-10.2) mg/dL Magnesium 2.1 (1.6-2.6) mg/dL Total Bilirubin 0.4 (0.0-1.0) mg/dL AST 14 (5-31) U/L ALT 11 (0-31) U/L Alkaline Phosphatase 65 (39-117) U/L Total Protein 7.3 (6.5-8.0) g/dL Albumin 3.9 (3.5-5.0) g/dL Lipase 131 H (8-78) U/L Beta HCG, Quant 1005 mIU/mL Urine Color Dark Yellow Urine Appearance Clear Urine pH 6.0 (5.0-9.0) Ur Specific [place] >= 1.030 H (1.005-1.025) Urine Protein Trace (Neg-Trace) mg/dL Urine Glucose (UA) Negative (Negative) mg/dL Urine Ketones Trace (Negative) mg/dL Urine Blood Negative (Negative) Urine Nitrite Negative (Negative) Ur Leukocyte Esterase Negative (Negative) Urine Test POSITIVE H (NEGATIVE) Discharge Plan Discharge Clinical Impression: Eloped from emergency department Patient Disposition: Elopement Prescriptions: No Action L norgest/e.estradiol-e.estrad [Seasonique] 0.15 mg-30 mcg (84)/10 mcg (7) tablets,dose pack,3 month 1 tab PO DAILY 84 Days Qty: 84 0RF amoxicillin-pot clavulanate [Augmentin] 875-125 mg tablet 1 tab PO BID Qty: 20 0RF albuterol sulfate 90 mcg/actuation HFA aerosol inhaler 2 puff inhalation Q6H PRN (Reason: shortness of breath or wheezing) Qty: 8.5 0RF fluconazole [Diflucan] 150 mg tablet 150 mg PO Q3D Qty: 2 0RF metronidazole 500 mg tablet 500 mg PO BID 7 Days Qty: 14 0RF nitrofurantoin monohyd/m-cryst [Macrobid] 100 mg capsule 100 mg PO BID 7 Days Qty: 14 0RF Rx Instructions: must administer with a meal/food albuterol sulfate 90 mcg/actuation HFA aerosol inhaler 1 inh inhalation QID Qty: 6.7 0RF albuterol sulfate 2.5 mg/0.5 mL solution for nebulization 5 mg inhalation Q6H Qty: 30 0RF metronidazole 500 mg tablet 500 mg PO BID 14 Days Qty: 28 0RF doxycycline monohydrate 100 mg capsule 100 mg PO BID 14 Days Qty: 28 0RF labetalol 200 mg tablet 200 mg PO BID Qty: 60 0RF Interventions: ED Discharge Assessment Last Done: 02/26/23 20:25 Discharge Date/Time: 02/26/23 21:24 Print Language: Tuvaluan
[2023-02-26 14:44] LABS: Appearance Urine Clear; Color Urine Dark Yellow; Glucose Urine UA Negative (Negative); Leukocyte Esterase Urine Negative (Negative); Nitrite Urine Negative (Negative); Specific Gravity - Urine >= 1.030 (1.005-1.025); UPreg QC Valid YES; Urine Blood Negative (Negative); Urine Ketones Trace mg/dL (Negative); Urine Pregnancy POSITIVE (NEGATIVE); Urine Protein Trace mg/dL (Neg-Trace)
[2023-02-26 14:47] LABS: Eosinophils Absolute Auto 0.1 X10*3/uL (0.0-0.4); Eosinophils Percent Auto 1.6 % (0-4); Mean Corpuscular Hemoglobin 18.5 pg (27.0-33.0); SCAN SMEAR FLAG 1
[2023-02-26 14:48] LABS: Basophils Percent Auto 0.4 % (0-2); Hematocrit 38.7 % (37.0-47.0); Hemoglobin 11.1 g/dl (12.0-16.0); Imm Gran Abs Auto 0.03 X10*3/uL (0.00-0.03); Imm Gran Pct Auto 0.3 % (0.0-0.4); Lymphocytes Absolute Auto 2.5 X10*3/uL (1.2-4.9); Lymphocytes Percent Auto 28.3 % (20-40); Mean Corpuscular HGB Conc 28.7 g/dl (31.0-35.0); Monocytes Absolute Auto 0.5 X10*3/uL (0.1-1.2); Monocytes Percent Auto 6.1 % (2-11); Neutrophils Absolute Auto 5.6 x10*3/uL (2.0-8.3); Neutrophils Percent Auto 63.3 % (45-73); Platelet Count 261 X10*3/uL (160-400); Red Blood Count 5.99 X10*6/uL (4.20-5.50); Red Cell Distribution Width 21.7 % (11.0-16.0); White Blood Count 8.9 X10*3/uL (4.8-10.8)
[2023-02-26 14:54] LABS: Mean Corpuscular Volume 64.6 fL (80.0-98.0)
[2023-02-26 14:55] LABS: PLT ABN DIST 1
[2023-02-26 14:56] LABS: MANUAL DIFF FLAG NO
[2023-02-26 15:12] LABS: Alanine Aminotransferase 11 U/L (0-31); Albumin Level 3.9 g/dL (3.5-5.0); Alkaline Phosphatase 65 U/L (39-117); Anion Gap 12 (12-20); Aspartate Amino Transferase 14 U/L (5-31); Bilirubin Total 0.4 mg/dL (0.0-1.0); Blood Urea Nitrogen 11 mg/dL (9-16); Carbon Dioxide 22 mmol/L (22-29); Chloride 107 mmol/L (96-108); Creatinine Clr Calc Pharmacy 111.6; Estimated Glomerular Filt Rate > 60; Glucose Random 94 mg/dL (60-115); HCG Quantitative 1005 mIU/mL; Lipase 131 U/L (8-78); Magnesium 2.1 mg/dL (1.6-2.6); Potassium 4.1 mmol/L (3.3-5.1); Sodium 137 mmol/L (135-145); Total Protein 7.3 g/dL (6.5-8.0)
== END 2023-02-26 21:24 | disposition left against medical advice (07) ==
PROVIDERS: Physician Assistant; Emergency Provider Emergency Medicine
DX: O26.891 Other specified pregnancy related conditions, first trimester (principal); R10.30 Lower abdominal pain, unspecified; Z3A.00 Weeks of gestation of pregnancy not specified
CPT/HCPCS: 36415; 76801; 76817; 80053; 81003; 81025; 83690; 83735; 84702; 85025; 99282; 99283; 99284

== ENCOUNTER 2023-03-10 00:13 | Emergency (ER) | payer OTHER, SELFPAY ==
[2023-03-10 00:15] VITALS: BP 155/99; PULSE 86; RESP 18; TEMP 36.6; O2SAT 97; BMI 32.9
[2023-03-10 01:11] VITALS: BP 151/95; PULSE 77; RESP 16; O2SAT 99
[2023-03-10 01:21] LABS: Hematocrit 39.8 % (37.0-47.0); Hemoglobin 11.6 g/dl (12.0-16.0); Mean Corpuscular HGB Conc 29.1 g/dl (31.0-35.0); Mean Corpuscular Hemoglobin 18.7 pg (27.0-33.0); Platelet Count 236 X10*3/uL (160-400); Red Cell Distribution Width 22.3 % (11.0-16.0); White Blood Count 9.3 X10*3/uL (4.8-10.8)
[2023-03-10 01:22] LABS: Mean Corpuscular Volume 64.2 fL (80.0-98.0)
--- NOTE | 2023-03-10 01:33 | ED.GENADULT ---
HPI - General Adult General Chief complaint: OB Stated complaint: Vomiting, nausea, ?high blood pressure Time Seen by Provider: 03/10/23 01:32 Source: patient Mode of arrival: ambulatory Limitations: no limitations History of Present Illness HPI narrative: Patient is a 27 year old assigned female at with a history of asthma and pre-eclampsia with all 3 of her previous pregnancies presenting to the emergency department today with a headache, nausea, and elevated blood pressure. Patient states that she is 7 weeks . Patient states that she has had a headache and nausea over the last few days. Patient states that she has been taking her blood pressure at home and the readings have been high. Patient states that she follows with [facility] for OB and doesn't have an appointment until next month. Patient denies any lightheadedness, abdominal pain, vomiting, fever, chills, blurry vision, double vision, loss of vision, chest pain, difficulty breathing, shortness of breath, back pain, night sweats, pain with urination, increased urinary frequency, increased urinary urgency, blood in her urine or stool, syncope or a near syncopal episode, recent trauma or falls, bowel incontinence, bladder incontinence, bowel retention, bladder retention, or any other complaints at this time. Onset (ago): day(s) (3) Severity: mild Relieving factors: none Exacerbating factors: none Associated symptoms: nausea/vomiting Treatments prior to arrival: none Related Data Previous Rx's Medication Instructions Recorded albuterol sulfate 90 mcg/actuation 2 puff inhalation Q6H PRN 11/11/20 aerosol inhaler shortness of breath or wheezing #8.5 grams amoxicillin 875 mg-potassium 1 tab PO BID #20 tabs 11/11/20 clavulanate 125 mg tablet (Augmentin) doxycycline monohydrate 100 mg 100 mg PO BID 14 days #28 caps 09/21/21 capsule metronidazole 500 mg tablet 500 mg PO BID 14 days #28 tabs 09/21/21 L norgest/E estradiol-E estrad 1 tab PO DAILY 84 days #84 ea 01/02/22 0.15 mg-30 mcg (84)/10 mcg(7) tabs,3mos (Seasonique) albuterol sulfate 2.5 mg/0.5 mL 5 mg inhalation Q6H #30 ea 08/10/22 solution for nebulization albuterol sulfate 90 mcg/actuation 1 inh inhalation QID #6.7 grams 08/10/22 aerosol inhaler fluconazole 150 mg tablet 150 mg PO Q3D 2 doses #2 tabs 08/10/22 (Diflucan) metronidazole 500 mg tablet 500 mg PO BID 7 days #14 tabs 08/10/22 nitrofurantoin 100 mg PO BID 7 days #14 caps 08/10/22 monohydrate/macrocrystals 100 mg capsule (Macrobid) labetalol 200 mg tablet 200 mg PO BID #60 tabs 03/10/23 Allergies Allergy/AdvReac Type Severity Reaction Status Date / Time cat dander [CAT] Allergy Mild HIVES Verified 10/11/21 14:33 SEAFOOD Allergy Mild HIVES Uncoded 04/15/20 18:51 Review of Systems Constitutional: Constitutional: Reports no additional constitutional complaints, Denies chills, Denies fever(s), Reports headache(s) and Denies night sweats Eyes: Eyes: Reports no additional eye complaints, Denies blurry vision, Denies change in vision, Denies diplopia, Denies eye discharge, Denies loss of vision and Denies eye pain ENT: Denies dizziness and Reports headache(s) Cardiovascular: Cardiovascular: Reports no additional cardiovascular complaints, Denies chest pain, Denies lightheadedness, Denies Loss of Consciousness and Denies dyspnea Respiratory: Respiratory: Reports no additional respiratory complaints and Denies dyspnea Gastrointestinal: Gastrointestinal: Reports no additional gastrointestinal complaints, Denies abdominal pain, Denies melena, Denies hematochezia, Denies change in bowel habits, Denies change in stool character and Reports nausea Genitourinary: Genitourinary: Denies hematuria, Denies urinary frequency, Denies dysuria, Denies urinary incontinence, Denies urinary hesitancy and Denies urinary urgency Musculoskeletal: Musculoskeletal: Reports no additional musculoskeletal complaints, Denies numbness and Denies tingling Neurologic: Denies dizziness, Reports headache(s), Denies loss of vision, Denies numbness and Denies tingling Psychiatric: Psychiatric: Reports no additional psychiatric complaints Endocrine: Endocrine: Reports no additional endocrine complaints Hematologic/Lymphatic: Hematologic/Lymphatic: Reports no additional hematologic/lymphatic complaints Allergic/Immunologic: Allergic/Immunologic: Reports no additional allergic/immunologic complaints PMFSH Past Medical History Attestation statement: The following information was validated with the patient. Source: old records reviewed and nursing notes reviewed Medical History Abnormal uterine bleeding Asthma Miscarriage Well woman exam Social History Social History Alcohol intake: current Alcohol intake frequency: holidays/special occasions only Substance Use Type: Marijuana Advance Directives: No Advance Directives Information Provided: Yes Gender identity: Female Physical Exam ED Vital Signs: Vital Signs - 24 hr 03/10/23 00:15 03/10/23 01:11 Temperature 97.9 F Pulse Rate 86 77 Respiratory Rate 18 16 Blood Pressure 155/99 H 151/95 H Pulse Oximetry 97 99 Oxygen Delivery Method Room Air Room Air BMI result Body Mass Index 32.9 Const General: cooperative, no acute distress, alert and awake Nutritional Appearance: well nourished Orientation/consciousness: patient oriented x3 Limitations: no limitations HENMT Head: Yes normal to inspection and Yes atraumatic Ears: hearing grossly normal bilaterally and external ears normal General nose exam: Normal external nose present, no nasal discharge noted and no epistaxis Face and sinus: Yes normal facial exam, No abrasion and No laceration Mouth: Normal oral and palatal mucosa present, no drooling and no muffled voice Eyes General: appearance normal, both eyes and all related structures Periorbital: periorbital findings normal Eyelids: Yes eyelids normal Conjunctivae: conjunctivae normal Pupils: Equal, round and reactive pupils present EOM: EOMs intact bilaterally Neck Neck: Yes normal visual inspection, Yes full ROM and Yes no lymphadenopathy Chest Chest palpation & inspection: normal inspection of the chest Resp Effort & Inspection: normal respiratory effort and able to speak in complete sentences Auscultation: clear to auscultation bilaterally Cardio Rate: regular rate Rhythm: regular rhythm GI Inspection: Yes normal to inspection Palpation (GI): Soft to palpation, not firm, nontender and no guarding Neuro General: patient oriented x3 and moves all extremities Cranial nerves: Yes Equal, round and reactive pupils present Cognition (Neuro): normal cognition Motor exam (neuro): 5/5 motor strength present throughout Sensory Exam: Normal double simultaneous stimulation for sensation Coordination: [id number] test normal Extrem General: Yes normal to inspection, Yes full ROM and Yes capillary refill normal Psych Appearance: grossly normal Mental Status: mental status grossly normal Affect: normal affect Attitude: cooperative Thought process: Normal thought process present Thought content: Normal thought content present Insight: Good insight present (Psych) Medical Decision Making Medical Decision Making [facility] Narrative: Patient is a 27 year old assigned female at with a history of 3 previous pregnancies presenting to the emergency department today with a headache and nausea. Patient's physical exam was unremarkable. Patient's blood work was unremarkable with the exception of an elevated HCG which is consistent with her . Patient's urine showed no acute process. I called and spoke with the covering OBGYN for the patient's OBGYN practice who recommended starting the patient on 200mg of Labetalol BID and having her follow up in the clinic on an outpatient basis. I explained my physical exam findings as well as all test results to the patient. I answered all questions asked by the patient. I stressed the importance of the patient taking her medication as prescribed. I stressed the importance of the patient following up with her primary care provider and her OBGYN. I stressed the importance of the patient returning to the emergency department immediately if her symptoms were to worsen or if she were to develop any dizziness, shortness of breath, difficulty breathing, chest pain, blurry vision, loss of vision, nausea, vomiting, abdominal pain, fever, chills, back pain, or any other complaints. Patient verbalized agreement and understanding with this treatment plan and discharge. Differential Diagnosis Differential Diagnoses: The differential diagnosis associated with the presentation includes Hypertension Admission/Observation Consideration of admission/observation: Escalation of care including admission/observation considered Patient would have been admitted to the hospital had his work up had any findings where hospital admission was appropriate and his clinical presentation warranted hospital admission. 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 My interpretation of these studies and their corresponding values is that they are grossly normal. 03/10/23 01:11 03/10/23 01:11 Labs: Lab Results 03/10/23 03/10/23 03/10/23 Range/Units 01:11 01:11 01:48 WBC 9.3 (4.8-10.8) X10*3/uL RBC 6.20 H (4.20-5.50) X10*6/uL Hgb 11.6 L (12.0-16.0) g/dl Hct 39.8 (37.0-47.0) % MCV 64.2 L (80.0-98.0) fL MCH 18.7 L (27.0-33.0) pg MCHC 29.1 L (31.0-35.0) g/dl RDW 22.3 H (11.0-16.0) % Plt Count 236 (160-400) X10*3/uL MPV TNP Absolute Nucleated RBC 0.000 (0.0-0.012) X10*3/uL Nucleated RBC % (auto) 0.0 (0.0-0.2) /100WBC Sodium 138 (135-145) mmol/L Potassium 3.6 (3.3-5.1) mmol/L Chloride 107 (96-108) mmol/L Carbon Dioxide 21 L (22-29) mmol/L Anion Gap 14 (12-20) BUN 10 (9-16) mg/dL Creatinine 0.76 (0.5-1.4) mg/dL Estim Creat Clear Calc 114.2 Estimated GFR > 60 Random Glucose 96 (60-115) mg/dL Calcium 8.8 (8.4-10.2) mg/dL Total Bilirubin 0.5 (0.0-1.0) mg/dL AST 18 (5-31) U/L ALT 11 (0-31) U/L Alkaline Phosphatase 61 (39-117) U/L Total Protein 7.5 (6.5-8.0) g/dL Albumin 3.9 (3.5-5.0) g/dL Beta HCG, Quant 08417 mIU/mL Urine Color Yellow Urine Appearance Clear Urine pH 6.5 (5.0-9.0) Ur Specific [place] 1.025 (1.005-1.025) Urine Protein 30 (1+) H (Neg-Trace) mg/dL Urine Glucose (UA) Negative (Negative) mg/dL Urine Ketones Negative (Negative) mg/dL Urine Blood Negative (Negative) Urine Nitrite Negative (Negative) Ur Leukocyte Esterase Trace H (Negative) Urine RBC 0-2 (0-2) /HPF Urine WBC 0-5 (0-5) /HPF Ur Squamous Epith Cells 6-10 (0-2) /HPF Urine Bacteria Trace (None Seen) Hyaline Casts 0-2 (0-2) /LPF Prescription Management I considered prescription management with: Other (antihypertensive) Chronic Conditions Patient?s care impacted by: Hypertension Critical Care Time Critical Care Time Critical Care Time: Yes Total Critical Care Time: 40 Attestation: I spent 40 minutes of Critical Care Time with this patient. This does not include time spent on separately reported billable procedures. Discharge Plan Discharge Clinical Impression: Hypertension Patient Disposition: Home, Self-Care Instructions: Hypertension (ED) Additional Instructions: Follow up with your primary care provider and your OBGYN. Return to the emergency department immediately if your symptoms worsen or if you develop any dizziness, shortness of breath, difficulty breathing, chest pain, blurry vision, loss of vision, nausea, vomiting, abdominal pain, fever, chills, back pain, or any other complaints. Prescriptions: New labetalol 200 mg tablet 200 mg PO BID Qty: 60 0RF No Action L norgest/e.estradiol-e.estrad [Seasonique] 0.15 mg-30 mcg (84)/10 mcg (7) tablets,dose pack,3 month 1 tab PO DAILY 84 Days Qty: 84 0RF amoxicillin-pot clavulanate [Augmentin] 875-125 mg tablet 1 tab PO BID Qty: 20 0RF albuterol sulfate 90 mcg/actuation HFA aerosol inhaler 2 puff inhalation Q6H PRN (Reason: shortness of breath or wheezing) Qty: 8.5 0RF fluconazole [Diflucan] 150 mg tablet 150 mg PO Q3D Qty: 2 0RF metronidazole 500 mg tablet 500 mg PO BID 7 Days Qty: 14 0RF nitrofurantoin monohyd/m-cryst [Macrobid] 100 mg capsule 100 mg PO BID 7 Days Qty: 14 0RF Rx Instructions: must administer with a meal/food albuterol sulfate 90 mcg/actuation HFA aerosol inhaler 1 inh inhalation QID Qty: 6.7 0RF albuterol sulfate 2.5 mg/0.5 mL solution for nebulization 5 mg inhalation Q6H Qty: 30 0RF metronidazole 500 mg tablet 500 mg PO BID 14 Days Qty: 28 0RF doxycycline monohydrate 100 mg capsule 100 mg PO BID 14 Days Qty: 28 0RF Referrals: [facility] [place]] (Call to establish and follow up with a primary care provider. If you already have a primary care provider, please follow up with them.) [facility] [place] [Provider Group] (Call to establish and follow up with a primary care provider. If you already have a primary care provider, please follow up with them.) [facility] Group] (Call to establish and follow up with a primary care provider. If you already have a primary care provider, please follow up with them.) Stand Alone Forms: Work/School Release Print Language: Iranian
[2023-03-10 01:43] LABS: Alanine Aminotransferase 11 U/L (0-31); Albumin Level 3.9 g/dL (3.5-5.0); Alkaline Phosphatase 61 U/L (39-117); Anion Gap 14 (12-20); Aspartate Amino Transferase 18 U/L (5-31); Bilirubin Total 0.5 mg/dL (0.0-1.0); Blood Urea Nitrogen 10 mg/dL (9-16); Calcium 8.8 mg/dL (8.4-10.2); Carbon Dioxide 21 mmol/L (22-29); Chloride 107 mmol/L (96-108); Creatinine Clr Calc Pharmacy 114.2; Estimated Glomerular Filt Rate > 60; Glucose Random 96 mg/dL (60-115); Potassium 3.6 mmol/L (3.3-5.1); Sodium 138 mmol/L (135-145); Total Protein 7.5 g/dL (6.5-8.0)
[2023-03-10 01:54] LABS: Appearance Urine Clear; Color Urine Yellow; Glucose Urine UA Negative (Negative); Leukocyte Esterase Urine Trace (Negative); Nitrite Urine Negative (Negative); PH 6.5 (5.0-9.0); Specific Gravity - Urine 1.025 (1.005-1.025); UMIC TRIGGER UACC YES; Urine Blood Negative (Negative); Urine Ketones Negative (Negative); Urine Protein 30 (1+) mg/dL (Neg-Trace)
[2023-03-10 01:59] LABS: Bacteria Urine Trace (None Seen); Hyaline Casts Urine 0-2 /LPF (0-2); RBC Urine 0-2 /HPF (0-2); WBC Urine 0-5 /HPF (0-5)
[2023-03-10 02:00] LABS: HCG Quantitative 23593 mIU/mL
[2023-03-10] MEDS: Labetalol HCL 200 MG TABLET PO (03:01)
[2023-03-10 03:35] VITALS: BP 162/90; PULSE 80; RESP 17; O2SAT 98
== END 2023-03-10 03:37 | disposition home or self-care (01) ==
PROVIDERS: Physician Assistant Medical; Emergency Provider Emergency Medicine
DX: O16.1 Unspecified maternal hypertension, first trimester (principal); R51.9 Headache, unspecified
CPT/HCPCS: 36415; 80053; 81001; 84702; 85027; 99283